=== PATIENT | female | born 1960 | race Caucasian/White ===

== ENCOUNTER 2022-09-18 07:31 | Outpatient (OUT) | payer OTHER, SELFPAY ==
--- NOTE | 2022-09-18 08:29 | CA_ITS ---
Patient: RC OROZCO Exam Date: 09/18/2022 : 1960 Gender:F Ordering : DR AMIRA DAVILA M.D. Admission #: [id number] Family : Order #: [id number] CLICK HERE TO VIEW EXAM ECHOCARDIOGRAM REPORT PROCEDURE: CA ECHO DOPPLER COMPLETE INDICATIONS: Aortic valve stenosis COMPARISON: None. DESCRIPTION: COMPLETE ECHOCARDIOGRAM Real-time transthoracic echocardiography with 2D, M-mode, spectral and color flow Doppler performed. QUALITY: Technically difficult due to lung interference. LEFT VENTRICLE: Normal chamber size. Normal left ventricular wall thickness. Normal systolic function. LV EF: Normal left ventricular ejection fraction, (55%). DIASTOLIC: ATRIAL SEPTUM: Visually appears intact. LEFT ATRIUM: Moderate dilatation. RIGHT ATRIUM: Normal chamber size. RIGHT VENTRICLE: Normal chamber size. Normal right ventricular systolic function. TRICUSPID VALVE: Normal mobility and thickness. No stenosis with trivial regurgitation. Doppler studies reveal mildly (35-45) elevated right sided pressures. RVSP 40 mmHg MITRAL VALVE: Normal mobility and thickness. No evidence of mitral valve stenosis. Moderate mitral annular calcification. Trivial mitral regurgitation. AORTIC VALVE: Normal trileaflet appearance. Mildly calcified aortic valve. Moderately diminished mobility. Doppler velocity suggest severe aortic valve stenosis. DVI 0.34, DOMENICA 1.0 cm2. Mild aortic regurgitation. AORTIC ROOT: Normal diameter and appearance. Aortic arch is normal in size. PULMONIC VALVE: Not well visualized. No stenosis. No regurgitation. PERICARDIUM: No evidence of pericardial effusion. IVC: Collapses with inspirations. IVC is normal in size. PLEURA: CONCLUSION: 1. Normal ventricular systolic function. LVEF is 55%. 2. Moderate aortic valve stenosis with mild regurgitation. 3. Mildly elevated right sided pressures. 4. Technically difficult study. Adult Echocardiography Procedure Report Left Ventricle LVEDD (3.7 - 5.6 cm): 4.59 cm LVESD (2.2 - 4.0 cm): 3.64 cm LVIVS thickness (0.6 - 1.2 cm): 0.70 cm LVPW thickness (0.5 - 1.0 cm): 0.83 cm E - e': 11.58 LVOT Max Gradient: 3.28 mm[Hg] LVOT Area (cm2): 0.91 m/s Peak Velocity (LVOT): 0.91 m/s Mean Velocity (LVOT): 0.71 m/s LVOT Diameter 1.86 cm Left Atrium LA Volume Index (2D A2C): 47.03 ml/m2 Left Atrium Systolic Dimension: 3.36 cm Mitral Valve MV E to A Ratio: 0.97, 0.86 Right Ventricle Aorta AO Root Diam: 2.99 cm Aortic Valve AoV Area (Peak Nick): 0.93 cm2, 1.03 cm2 AoV Area (VTI): 0.93 cm2, 1.14 cm2 Peak Velocity(Antegrade Flow): 2.38 m/s, 2.65 m/s, 2.65 m/s, 2.29 m/s Peak Gradient(Antegrade Flow): 22.64 mm[Hg], 28.04 mm[Hg], 28.04 mm[Hg], 21.00 mm[Hg] Mean Velocity(Antegrade Flow): 1.65 m/s, 1.84 m/s, 1.78 m/s, 1.62 m/s Mean Gradient(Antegrade Flow): 12.14 mm[Hg], 15.38 mm[Hg], 14.75 mm[Hg], 11.76 mm[Hg] Velocity Time Integral: 54.49 cm, 65.28 cm, 66.79 cm, 51.66 cm Tricuspid Valve Peak Velocity (Regurgitant Flow): 3.05 m/s Pulmonic Valve Peak Gradient: 5.75 mm[Hg], 3.73 mm[Hg] Right Atrium Right Atrium Systolic Pressure: 20.75 ml, 20.75 ml Dictated by: Amira Davila M.D. on 09/18/2022 at 17:19 Approved by: Amira Davila M.D. on 09/18/2022 at 17:31
== END 2022-09-18 07:32 | disposition home or self-care (01) ==
LOC: CARD 07:31
PROVIDERS: PCP Family Medicine; Visit Provider Internal Medicine Interventional Cardiology
DX: I35.0 Nonrheumatic aortic (valve) stenosis (principal)
CPT/HCPCS: 93306

== ENCOUNTER 2023-12-06 07:20 | Outpatient (OUT) | payer OTHER, SELFPAY ==
--- NOTE | 2023-12-06 07:37 | CA_ITS ---
Patient Name: RC OROZCO MR#: [id number] : 1960 Exam Date: 12/06/2023 Ordering Doctor: DR AMIRA DAVILA M.D. ECHOCARDIOGRAM REPORT PROCEDURE: CA ECHO DOPPLER COMPLETE INDICATIONS: Mitral and aortic valve stenosis COMPARISON: None. DESCRIPTION: COMPLETE ECHOCARDIOGRAM Real-time transthoracic echocardiography with 2D, M-mode, spectral and color flow Doppler performed. QUALITY: Technical quality was good. LEFT VENTRICLE: Normal chamber size. Mild to moderate concentric hypertrophy. Global left ventricular systolic function is normal. LV EF: Estimated left ventricular ejection fraction is 60% DIASTOLIC: Grade 1 diastolic dysfunction. ATRIAL SEPTUM: LEFT ATRIUM: Moderate dilatation. RIGHT ATRIUM: Normal chamber size. RIGHT VENTRICLE: Normal chamber size. Normal right ventricular systolic function. TRICUSPID VALVE: Normal mobility and thickness. No stenosis with mild regurgitation. No evidence of pulmonary hypertension. RVSP 25 mmHg MITRAL VALVE: Mildly thickened with normal mobility. No evidence of mitral valve stenosis. Moderate mitral annular calcification. Trivial mitral regurgitation. AORTIC VALVE: Normal trileaflet appearance. Severely calcified aortic valve. Moderately diminished mobility. Doppler velocity suggests moderate to severe aortic valve stenosis. DVI 0.33, DOMENICA 1.0 cm2, Vmax 2.9 m/s, Mean gradient 17 mmHg. Mild to moderate aortic regurgitation. AORTIC ROOT: Normal diameter and appearance. PULMONIC VALVE: Normal thickness and mobility. No stenosis. Trivial regurgitation. PERICARDIUM: No evidence of pericardial effusion. IVC: Collapses with inspirations. Normal size. PLEURA: CONCLUSION: 1. Mild to moderate concentric left ventricular hypertrophy with normal systolic function. LVEF is estimated at 60%. 2. Normal right ventricular size and systolic function. 3. Grade 1 diastolic dysfunction. 4. Moderate left atrial dilatation. 5. Moderate to severe aortic valve stenosis with mild to moderate regurgitation. 6. Depending on the clinical picture, a transesophageal echocardiogram can provide better assessment of the aortic valve function. Adult Echocardiography Procedure Report Left Ventricle LVEDD (3.7 - 5.6 cm): 4.28 cm LVESD (2.2 - 4.0 cm): 2.99 cm LVIVS thickness (0.6 - 1.2 cm): 1.54 cm LVPW thickness (0.5 - 1.0 cm): 0.97 cm e': 0.06 m/s E - e': 14.68 LVOT Max Gradient: 3.57 mm[Hg] LVOT Area (cm2): 0.95 m/s Peak Velocity (LVOT): 0.95 m/s Mean Velocity (LVOT): 0.63 m/s LVOT Diameter 1.92 cm Left Ventricular Ejection Fraction: 60 % Left Atrium LA Volume Index (2D A2C): 54.94 ml/m2 Left Atrium Systolic Dimension: 3.45 cm Mitral Valve MV E to A Ratio: 0.67 Mitral Valve A-Wave Peak Velocity: 1.39 m/s Mitral Valve E-Wave Peak Velocity: 0.93 m/s Right Ventricle RV Internal Diastolic Dimension: 3.27 cm Aorta AO Root Diam: 2.58 cm Ascending Ao Diam: 2.90 cm Aortic Valve AoV Area (Peak Nick): 1.00 cm2, 0.93 cm2, 1.22 cm2, 1.22 cm2 AoV Area (VTI): 1.24 cm2, 1.16 cm2 Deceleration Wilkes: 1.04 m/s2, 1.31 m/s2 Pressure Half-Time: 684.81 ms, 835.46 ms Peak Velocity(Antegrade Flow): 2.94 m/s, 2.89 m/s, 2.61 m/s, 2.52 m/s, 2.26 m/s Peak Gradient(Antegrade Flow): 34.65 mm[Hg], 33.40 mm[Hg], 27.20 mm[Hg], 25.44 mm[Hg], 20.43 mm[Hg] Mean Velocity(Antegrade Flow): 1.88 m/s, 1.92 m/s, 1.72 m/s, 1.76 m/s Mean Gradient(Antegrade Flow): 16.73 mm[Hg], 16.72 mm[Hg], 13.43 mm[Hg], 13.73 mm[Hg] Velocity Time Integral: 60.60 cm, 61.16 cm, 52.96 cm, 51.47 cm Tricuspid Valve Peak Velocity (Regurgitant Flow): 2.13 m/s, 2.32 m/s, 2.33 m/s Pulmonic Valve Mean Gradient: 4.17 mm[Hg], 4.13 mm[Hg], 3.06 mm[Hg] Mean Velocity: 0.95 m/s, 0.97 m/s, 0.82 m/s Peak Velocity: 1.34 m/s Peak Gradient: 7.86 mm[Hg], 7.86 mm[Hg], 5.88 mm[Hg] Right Atrium Right Atrium Systolic Pressure: 23.34 ml, 23.34 ml Dictated by: Amira Davila M.D. on 12/06/2023 at 18:23 Approved by: Amira Davila M.D. on 12/06/2023 at 18:37
== END 2023-12-06 07:21 | disposition home or self-care (01) ==
LOC: CARD 07:21
PROVIDERS: PCP Family Medicine; Visit Provider Internal Medicine Interventional Cardiology
DX: I35.0 Nonrheumatic aortic (valve) stenosis (principal); I05.0 Rheumatic mitral stenosis; E78.5 Hyperlipidemia, unspecified; I10 Essential (primary) hypertension
CPT/HCPCS: 36415; 80053; 80061; 85025; 93306

== ENCOUNTER 2023-12-06 07:33 | Outpatient (OUT) | payer OTHER, SELFPAY ==
[2023-12-06 08:10] LABS: Basophils Absolute Auto 0.1 10^3/uL (0.0-0.1); Basophils Percent Auto 0.7 % (0.2-2.0); Eosinophils Absolute Auto 0.1 10^3/uL (0.0-0.7); Eosinophils Percent Auto 1.4 % (0.9-7.0); Hematocrit 43.1 % (36.0-48.0); Hemoglobin 14.4 g/dL (12.0-16.0); Immature Granulocytes Abs Auto 0.02 10^3/uL (0.00-0.03); Immature Granulocytes Pct Auto 0.2 % (0.0-0.5); Lymphocytes Absolute Auto 2.7 10^3/uL (1.2-3.8); Lymphocytes Percent Auto 29.1 % (20.5-60.0); Mean Corpuscular HGB Conc 33.4 g/dL (29.9-35.2); Mean Corpuscular Hemoglobin 33.2 pg (26.7-34.0); Mean Corpuscular Volume 99.3 fL (81.0-99.0); Monocytes Absolute Auto 0.8 10^3/uL (0.3-0.8); Monocytes Percent Auto 9.1 % (1.7-12.0); Neutrophils Absolute Auto 5.5 10^3/uL (1.4-6.5); Neutrophils Percent Auto 59.5 % (43.0-75.0); Platelet Count 371 10^3/uL (150-450); Red Blood Count 4.34 10^6/uL (4.20-5.40); White Blood Count 9.2 10^3/uL (4.0-11.0)
[2023-12-06 08:49] LABS: Alanine Aminotransferase 23 U/L (14-59); Albumin Level 3.7 g/dL (3.4-5.0); Alkaline Phosphatase 83 U/L (46-116); Anion Gap 14.2; Aspartate Amino Transferase 17 U/L (15-37); BUN Creatinine Ratio 22.1; Bilirubin Total 0.5 mg/dL (0.2-1.0); Calcium 8.9 mg/dL (8.5-10.1); Carbon Dioxide 25.2 mmol/L (21.0-32.0); Chloride 104 mmol/L (98-107); Chol HDL Ratio 3.4; Cholesterol 200 mg/dL (<=200); Estimated GFR (African America >60 (>=60 mL/min/1.73m^2); Estimated GFR (Non-African Ame >60 (>=60 mL/min/1.73m^2); Globulin 3.8 g/dL; Glucose 121 mg/dL (74-106); HDL Cholesterol 59 mg/dL (40-60); Potassium 4.4 mmol/L (3.5-5.1); Sodium 139 mmol/L (136-145); Total Protein 7.5 g/dL (6.4-8.2); Triglycerides 65 mg/dL (<=150)
== END 2023-12-06 07:34 | disposition home or self-care (01) ==
LOC: LAB 07:33
PROVIDERS: PCP Family Medicine; Visit Provider Nurse Practitioner
DX: E78.5 Hyperlipidemia, unspecified (principal); I10 Essential (primary) hypertension
CPT/HCPCS: 36415; 80053; 80061; 85025